=== PATIENT | male | born 1965 | race Caucasian/White ===

== ENCOUNTER 2019-05-30 15:42 | Emergency (ER) | payer OTHER ==
[~2019-05-30] VITALS: Ht 167.6 cm; Wt 95.5 kg
[~2019-05-30 15:42] MED LIST: ASPI-903 PO; CALC0.255 PO; CALC667T2 PO; CLON0.2T5 PO; FURO80TA3 PO; GABA300C16 PO; HYDR-3671 PO; HYDR100T25 PO; LOSA100T15 PO; TRAZ-111 PO
[2019-05-30 15:44] VITALS: Ht 167.6 cm; Wt 95.5 kg
--- NOTE | 2019-05-30 16:02 | ERD ---
ER Documentation Chief Complaint Chief Complaint R90 generalize weakness x1mth, on perineal dialysis HPI The patient is a 53-year-old male, presenting to the ER because of dizziness and sleepiness that began around 11 AM, had similar symptoms previously. He has generalized weakness for more than a month, has been hospitalized recently, last admission was at hospital intolerance last week due to high blood pressure.. He he denies fever, chills, neck pain, chest pain, dyspnea, abdominal pain, vomiting, dysuria, diarrhea, complains of constipation, denies dysuria. He takes multiple medication for hypertension Medical history: Chronic kidney disease on peritoneal dialysis for the last 5 months, hypertension, diabetes mellitus Past surgical history: Peritoneal dialysis catheter, left elbow ROS All systems reviewed and are negative except as per history of present illness. Medications Home Meds Reported Medications Clonidine Hcl* (Clonidine Hcl*) 0.2 Mg Tablet, 0.2 MG PO DAILY, TAB 05/30/19 Calcium Acetate* (Phoslo*) 667 Mg Tablet, 2001 MG PO WITH MEALS, TAB 05/30/19 Hydralazine Hcl* (Hydralazine Hcl*) 100 Mg Tablet, 100 MG PO Q8 PRN for HTN, #90 TAB 05/30/19 Calcitriol* (Rocaltrol*) 0.25 Mcg Capsule, 0.25 MCG PO DAILY, CAP 05/30/19 Trazodone Hcl* (Trazodone Hcl*) 50 Mg Tablet, 50 MG PO QHS, #30 TAB 05/30/19 Gabapentin* (Gabapentin*) 300 Mg Capsule, 300 MG PO QHS, #60 CAP 05/30/19 Aspirin* (Aspirin* Chew) 81 Mg Tab.chew, 81 MG PO DAILY, TAB.CHEW 05/30/19 Furosemide* (Furosemide*) 80 Mg Tablet, 80 MG PO DAILY, #30 TAB 05/30/19 Losartan Potassium* (Losartan Potassium*) 100 Mg Tablet, 100 MG PO DAILY, TAB 05/30/19 Discontinued Reported Medications Hydralazine Hcl* (Hydralazine Hcl*) 25 Mg Tab, 25 MG PO Q6H PRN for HTN, #60 TAB 05/30/19 Allergies Allergies: Coded Allergies: No Known Allergy (Unverified , 05/30/19) Physical Exam Vitals Vital Signs Date Temp Pulse Resp B/P (MAP) Pulse Ox O2 O2 Flow FiO2 Time Delivery Rate 05/30/19 98.1 70 14 155/81 95 Room Air 19:32 (105) 05/30/19 67 14 161/80 95 Room Air 18:30 (107) 05/30/19 98.1 66 17 145/71 95 Room Air 17:26 (95) 05/30/19 98.1 62 18 108/57 98 15:44 (74) Physical Exam Const: No acute distress. Head: Atraumatic. Eyes: Normal Conjunctiva. ENT: Normal External Ears, Nose and Mouth. Neck: Full range of motion. No meningismus. Resp: Clear to auscultation bilaterally. Cardio: Regular rate and rhythm. Abd: Soft, non distended, normal bowel sounds, non tender. Skin: No petechiae or rashes. Back: No midline or flank tenderness. Ext: No cyanosis, or edema. Neur: Awake and alert. No focal deficit Psych: Normal Mood and Affect. Result Diagram: 05/30/19 1644 05/30/19 1644 Results 24 hrs Laboratory Tests Test 05/30/19 16:36 05/30/19 16:44 05/30/19 18:22 Bedside Glucose 64 mg/dL 133 mg/dL White Blood Count 9.7 10^3/ul Red Blood Count 2.86 10^6/ul Hemoglobin 8.9 g/dl Hematocrit 27.4 % Mean Corpuscular Volume 95.8 fl Mean Corpuscular Hemoglobin 31.1 pg Mean Corpuscular 32.5 g/dl Hemoglobin Concent Red Cell Distribution Width 13.1 % Platelet Count 280 10^3/UL Mean Platelet Volume 10.0 fl Immature Granulocytes % 2.100 % Neutrophils % 65.9 % Lymphocytes % 18.4 % Monocytes % 10.7 % Eosinophils % 2.4 % Basophils % 0.5 % Nucleated Red Blood Cells % 0.0 /100WBC Immature Granulocytes # 0.200 10^3/ul Neutrophils # 6.4 10^3/ul Lymphocytes # 1.8 10^3/ul Monocytes # 1.0 10^3/ul Eosinophils # 0.2 10^3/ul Basophils # 0.1 10^3/ul Nucleated Red Blood Cells # 0.0 10^3/ul Sodium Level 135 mmol/L Potassium Level 4.9 mmol/L Chloride Level 101 mmol/L Carbon Dioxide Level 20 mmol/L Anion Gap 14 Blood Urea Nitrogen 99 mg/dl Creatinine 11.06 mg/dl Est Glomerular Filtrat Rate mL/min 5 mL/min Glucose Level 57 mg/dl Calcium Level 9.1 mg/dl Procedures/[place] [id number] Radiology Main Line: [phone] DIAGNOSTIC IMAGING REPORT Patient: MARÍA LEVI : 1965 Age: 53 Sex: M MR #: [id number] DOS: 05/30/19 1740 Ordering MD: RADHA RUDOLPH MD Location: E/R Room/Bed: PROCEDURE: CT head CLINICAL INDICATION: Vertigo and dizziness TECHNIQUE: Contiguous 2.5 mm axial images were obtained from the vertex to the skull base. No intravenous contrast was administered. The calculated dose kenji th product (DLP) = 634.23 mGy-cm. The CTDlvol = 38.20 mGy. One or more of the following dose reduction techniques were used: Automated exposure control, adjustment of the mA and or KV according to patient size, or use of iterative reconstruction technique. DICOM images are available. COMPARISON: None FINDINGS: There is no acute intracranial hemorrhage or acute territorial infarct. No mass or mass effect is seen on this noncontrast study. Age appropriate cortical and central atrophy is seen. There is patchy areas of low attenuation in the periventricular white matter likely representing small vessel ischemic change; however given the patchy appearance a white matter disease such as demyelination cannot be completely excluded. Visualized paranasal sinuses are normally aerated. Bony calvarium is unremarkable. IMPRESSION: 1. No acute intracranial hemorrhage or acute territorial infarct. 2. Patchy areas of low attenuation in the periventricular white matter likely represent small vessel ischemic change; however given the patchy appearance a white matter disease such as demyelination cannot be completely excluded and correlation with MRI at some point is recommended. 3. Age related cortical and central atrophy RPTAT: HH .Arnav Caldwell MD, Date Time Electronically viewed and signed by .Arnav Caldwell MD, on 05/30/2019 18:46 .W/ CC: RADHA RUDOLPH MD [id number] [place] [id number] Radiology Main Line: [phone] DIAGNOSTIC IMAGING REPORT Patient: MARÍA LEVI : 1965 Age: 53 Sex: M MR #: [id number] DOS: 05/30/19 1627 Ordering MD: RADHA RUDOLPH MD Location: E/R Room/Bed: PROCEDURE: XR Chest. CLINICAL INDICATION: Chest pain TECHNIQUE: AP Portable chest. COMPARISON: None available FINDINGS: The soft tissues and bones are normal. No focal infiltrates, masses, or effusions are noted. The mediastinum and heart are normal. No pneumothorax is present. IMPRESSION: 1. No radiographic evidence for acute cardiopulmonary disease RPTAT: HDC .Mariana Emmanuel MD, MD Date Time Electronically viewed and signed by .Mariana Emmanuel MD, MD on 05/30/2019 17:12 .C/ CC: RADHA RUDOLPH MD [phone] EKG: Read by emergency physician Rate/Rhythm: Normal Sinus Rhythm 65 beats/min QRS, ST, T-waves: No ST elevation, no T inversion, LVH, nonspecific T abn ormality Impression: Abnormal EKG MEDICAL MAKING DECISION: The patient is a 53-year-old male, presenting with acute generalized weakness of unclear etiology, acute hypoglycemia. He was given food to eat and he feels better. His blood pressure improved I advised him that his symptoms are related to hypoglycemia, however he insists on having a brain CT scan, I advised him against it but he still wanted to have it The differential diagnoses considered include but are not limited to central causes such as cerebellar infarct, cerebellar hemorrhage, cerebellar tumor, acoustic neuroma, peripheral causes such as benign positional vertigo, labyrinthitis, medication, Meniere's disease. Departure Diagnosis: Primary Impression: Weakness generalized Additional Impressions: Dizziness Hypoglycemia Anemia Condition: Good Comments I discussed the findings with the patient. I advised the patient to follow-up with the primary physician in about 1-2 days, sooner if needed and return if any concern, advised that if the symptoms persist, he needs a MRI. Disclaimer: Inadvertent spelling and grammatical errors are likely due to EHR/dictation software use and do not reflect on the overall quality of patient care. Also, please note that the electronic time recorded on this note does not necessarily reflect the actual time of the patient encounter. RADHA RUDOLPH MD May 30, 2019 16:02
[2019-05-30 19:32] VITALS: BP 155/81; PULSE 70; RESP 14
== END 2019-05-30 19:33 | disposition home or self-care (01) ==
LOC: E/R 15:42
DX: D64.9 Anemia, unspecified (principal); R42 Dizziness and giddiness; E11.22 Type 2 diabetes mellitus with diabetic chronic kidney disease; N18.9 Chronic kidney disease, unspecified; I12.9 Hypertensive chronic kidney disease with stage 1 through stage 4 chronic kidney disease, or unspecified chronic kidney disease; E11.65 Type 2 diabetes mellitus with hyperglycemia; Z79.82 Long term (current) use of aspirin; Z99.2 Dependence on renal dialysis
CPT/HCPCS: 36415; 70450; 71045; 80048; 82962; 85025; 93005